=== PATIENT | female | born 1985 | race African-American/Black ===

== ENCOUNTER 2020-07-23 14:32 | Emergency (ER) | payer OTHER, SELFPAY ==
[2020-07-23 14:42] VITALS: BP 139/95; PULSE 69; RESP 16; TEMP 36.4; O2SAT 100
--- NOTE | 2020-07-23 15:04 | ED.URI ---
HPI - URI/Sore Throat General Chief Complaint: Upper Respiratory Infection Stated Complaint: sore throat Source: patient and RN notes reviewed Mode of arrival: ambulatory Limitations: no limitations History of Present Illness HPI Narrative: This is a 34-year-old -[place] female that presented to urgent care with complaints of sore throat , itchy ears and body aches that she started experiencing on Thursday. Patient's daughter did test positive for strep today she will also be treated with amoxicillin although her test reported negative. The patient denies SOB, CP, palpitation, extremity numbness, lightheadedness, dizziness, constipation, diarrhea, chills, or fever. Related Data Allergies Allergy/AdvReac Type Severity Reaction Status Date / Time latex Allergy Rash Verified 07/23/20 14:42 Review of Systems Review of Systems: All systems reviewed & are unremarkable except as noted in HPI and below (10 point system review) [facility] Family History Family History (Updated 03/23/14 @ 07:13 by DOCTOR UNKNOWN) Mother Hypertension Family history of elevated blood lipids Social History Social History Gender identity (if verbalized by the patient): Female Exam Narrative: Exam Narrative: GENERAL: This is a well-nourished, well-developed patient, in no apparent distress. HEAD: normocephalic, atraumatic. EYES: PERRL. Sclera clear/white. Vision is grossly intact. EARS: External ears normal, auditory canals clear and without drainage, TMs normal without perforation. Hearing grossly intact. NOSE: External nose normal with no obvious nasal discharge, nares without redness, no rhinorrhea. THROAT: Mucous membranes moist, posterior pharynx erythema with edema NECK: Neck supple, non-tender without lymphadenopathy, masses or thyromegaly. CARDIOVASCULAR: Regular rate and rhythm without murmurs, gallops, or rubs. RESPIRATORY: Clear to auscultation. Breath sounds equal bilaterally. No wheezes, rales, or rhonchi. GASTROINTESTINAL: Abdomen soft, non-tender, nondistended. Bowel sounds are active. No hepato-splenomegaly, or palpable masses. No guarding. SKIN: warm, intact with no suspicious lesions or rash, good texture and turgor. NEURO: awake, alert, and oriented to person, place and time. There were no obvious focal neurologic abnormalities. Steady gait EXTREMITIES: Normal range of motion. No edema. No calf tenderness. Negative Homans sign bilaterally. BACK: Nontender without deformity or crepitance. No flank tenderness. Course Course Emergency Course: Patient will discharge with amoxicillin 500 mg twice daily x7 days she did test negative but she had exposure MDM - URI/Sore Throat Differential Diagnosis Differential diagnosis: Likely upper respiratory infection, sinusitis, viral infection, influenza and pharyngitis Lab Data Attestation: I reviewed the patient's lab results. Labs: Strep Screen Presumptive Negative *(Reference Range: Negative)* Discharge Plan Discharge Clinical Impression: Strep pharyngitis Patient Disposition: Home, Self-Care Condition: Stable Instructions: Antibiotic Form, Amoxicillin (By mouth), Strep Throat (DC) Additional Instructions: -Eat things that are easy to swallow, like tea or soup, or popsicles to suck on. -Oral rinses such as: Salt water gargles and/or may use topical anesthetic (eg. Chloraseptic spray) or lozenges to relieve dryness or throat pain. -Take tylenol and ibuprofen as needed for pain and fever as directed. -Frequent hand washing or hand salon designer is one of the best ways to prevent spread of infection. -Follow up with primary care provider in 2-3 days if condition is not improving or seek ER visit if your child starts breathing fast/has trouble breathing, is not drinking enough fluids, muffle voice, difficulty opening the mouth or will not wake up or will not interact with you. Prescriptions: New amoxicilli
== END 2020-07-23 14:55 | disposition home or self-care (01) ==
PROVIDERS: Emergency Provider Nurse Practitioner; PCP Family Medicine
DX: J02.0 Streptococcal pharyngitis (principal)
CPT/HCPCS: 87081; 87880; 99213; G0463

== ENCOUNTER 2020-07-28 23:57 | Emergency (ER) | payer OTHER, SELFPAY ==
--- NOTE | ~2020-07-28 | XR_ITS ---
EXAMINATION: XR chest 1V portable DATE: 07/29/2020 00:38 INDICATION: Midsternal chest pain TECHNIQUE: frontal view of the chest was obtained. COMPARISON: None FINDINGS: The lungs are clear with no focal airspace opacities, pulmonary edema, pleural effusion or pneumothor ax. The cardiomediastinal silhouette is normal. Visualized bones and soft tissues are unremarkable. IMPRESSION: 1. No acute cardiopulmonary disease. Reviewed, dictated and finalized at location A. MACHINE OPERATOR
[2020-07-28 23:59] VITALS: BP 146/111; PULSE 72; RESP 16; TEMP 35.9; O2SAT 100
--- NOTE | 2020-07-29 00:11 | ECG_ITS ---
Measurements Intervals [place] Rate: 68 P: 55 [place]: 172 QRS: 37 QRSD: 81 T: 23 QT: 379 QTc: 405 Interpretive Statements SINUS RHYTHM BORDERLINE T WAVE ABNORMALITY- ANTERIOR LEADS BASELINE ARTIFACT- I, III, V1, V3 BORDERLINE ECG Electronically Signed On 07-29-2020 8:01:50 [employer]ER[employer]IEUTENANT by Jose Manuel Berry D.O.
[2020-07-29 00:18] LABS: Basophils Absolute Auto 0.1 K/mm3 (0.0-0.1); Basophils Percent Auto 0.6 % (0.2-1.2); Eosinophils Absolute Auto 0.2 K/mm3 (0-0.3); Eosinophils Percent Auto 1.6 % (0-4.4); Hematocrit 42.7 % (37.0-47.0); Hemoglobin 14.5 g/dL (12.0-15.0); Immature Granulocyte Absolute 0.03 K/mm3 (0.00-0.031); Immature Granulocyte Percent A 0.2 % (0-0.5); Lymphocytes Percent Auto 33.5 % (18.3-44.2); Mean Corpuscular Hemoglobin 29.5 pg (26-34); Mean Platelet Volume 10.2 fl (7.4-10.4); Monocytes Absolute Auto 0.9 K/mm3 (0.1-0.6); Monocytes Percent Auto 7.1 % (2.6-8.5); Neutrophils Absolute Auto 7.1 K/mm3 (1.3-6.7); Platelet Count Result 296 k/mm3 (150-375); Red Blood Count 4.91 M/mm3 (4.2-5.4); Red Cell Distribution Width 13.2 % (11.5-14.5); White Blood Count 12.5 K/mm3 (4.5-10.0)
[2020-07-29 00:36] LABS: Alanine Aminotransferase 18 U/L (4-35); Albumin Level 4.3 g/dL (3.5-5.1); Alkaline Phosphatase 130 U/L (38-126); Anion Gap 6 mmol/L (8-16); Aspartate Amino Transferase 27 U/L (14-36); Bilirubin,Total 0.5 mg/dL (0.2-1.3); Blood Urea Nitrogen 11 mg/dL (7-17); Calcium 9.1 mg/dL (8.4-10.2); Carbon Dioxide 30 mmol/L (22-30); Chloride 103 mmol/L (98-107); Estimated CRCL calculation 95 ml/min; Estimated Glomerular Filt Rate > 60; Glucose 98 mg/dL (65-105); Lipase 69 U/L (23-300); Potassium 3.6 mmol/L (3.4-5.0); Sodium 139 mmol/L (137-145)
[2020-07-29 00:47] LABS: Troponin I < 0.012 ng/mL (0.000-0.034)
[2020-07-29 00:55] LABS: Add Urine Microscopic? YES; Appearance Urine Clear (Clear); Bilirubin Urine Negative (Negative); Blood Urine Negative (Negative); Color Urine Yellow (Yellow); Glucose Urine UA Negative (Negative); Ketones Urine Negative (Negative); Leukocyte Esterase Ur Negative LEU/UL (Negative); Mucus Urine Heavy /lpf; Nitrate Urine Negative (Negative); Protein Urine 1+ mg/dL (Negative); Squamous Epithelial Cell Urine Many /hpf (Few); Urobilinogen Urine Negative mg/dL (<2.0)
[2020-07-29 00:56] LABS: Specific Grav Ur 1.034 (1.001-1.035)
[2020-07-29 01:20] VITALS: BP 127/93; PULSE 87; RESP 18; O2SAT 98
--- NOTE | 2020-07-29 01:41 | ED.GENADULT ---
HPI - General Adult General Chief complaint: Chest Pain Stated complaint: chest pain Time Seen by Provider: 07/29/20 00:09 History of Present Illness HPI narrative: Patient is a 34-year-old female who presents the emergency department with chief complaint of chest pain. Patient reports that she has discomfort in her chest and along her sternal border hurts whenever she takes a deep breath or whenever she moves around. Patient states it does feel more like a pressure-like sensation. The patient denies history of lupus denies history of connective tissue disorder. Patient states that she was tested for COVID-19 and it was negative Related Data Allergies Allergy/AdvReac Type Severity Reaction Status Date / Time latex Allergy Rash Verified 07/23/20 14:42 Review of Systems Review of Systems: Narrative: A 10 system review of systems was completed on the patient and is negative except for what is stated in the HPI. Nursing and ancillary documentation was reviewed. [facility] Family History Family History Mother Hypertension Family history of elevated blood lipids Social History Social History Gender identity (if verbalized by the patient): Female Comments Patient reports no significant past medical history History the patient had a cholecystectomy Exam Narrative: Exam Narrative: GENERAL: Well-appearing, well-nourished, and in no acute distress. HEAD: Normocephalic, atraumatic. EYES: PERRLA and EOMI. ENT: Nares clear, no rhinorrhea or epistaxis. Mucous membranes moist. NECK: Supple. CHEST: Clear to auscultation. No respiratory distress. There is tenderness to palpation in the sternal border HEART: Regular rate and rhythm. No murmur heard. Normal peripheral pulses. ABDOMEN: Soft, nontender, nondistended, normal active bowel sounds. EXTREMITIES: Normal range of motion. No edema. SKIN: Warm, dry, no rash. NEURO: No focal deficits. Alert and oriented x3. PSYCH: Normal mood and affect. Course Course Emergency Course: EKG shows sinus rhythm rate of [address] elevation or ST depression Vital Signs Vital signs: Vital Signs Temperature 35.9 C L 07/28/20 23:59 Pulse Rate 72 07/28/20 23:59 Respiratory Rate 16 07/28/20 23:59 Blood Pressure 146/111 H 07/28/20 23:59 Pulse Oximetry 100 07/28/20 23:59 Temperature 35.9 C L 07/28/20 23:59 Pulse Rate 87 07/29/20 01:20 Respiratory Rate 18 07/29/20 01:20 Blood Pressure 127/93 H 07/29/20 01:20 Pulse Oximetry 98 07/29/20 01:20 Medical Decision Making Vital Signs Vital Signs: Vital Signs Temperature 35.9 C L 07/28/20 23:59 Pulse Rate 72 07/28/20 23:59 Respiratory Rate 16 07/28/20 23:59 Blood Pressure 146/111 H 07/28/20 23:59 Pulse Oximetry 100 07/28/20 23:59 Temperature 35.9 C L 07/28/20 23:59 Pulse Rate 87 07/29/20 01:20 Respiratory Rate 18 07/29/20 01:20 Blood Pressure 127/93 H 07/29/20 01:20 Pulse Oximetry 98 07/29/20 01:20 Lab Data Result diagrams: 07/29/20 00:10 07/29/20 00:10 Labs: Lab Results 07/29/20 07/29/20 07/29/20 Range/Units 00:10 00:10 00:30 WBC 12.5 H (4.5-10.0) K/mm3 RBC 4.91 (4.2-5.4) M/mm3 Hgb 14.5 (12.0-15.0) g/dL Hct 42.7 (37.0-47.0) % MCV 87.0 (80-100) fl MCH 29.5 (26-34) pg MCHC 34.0 (32-36) g/dl RDW 13.2 (11.5-14.5) % Plt Count 296 (150-375) k/mm3 MPV 10.2 (7.4-10.4) fl Immature Gran % (Auto) 0.2 (0-0.5) % Neut % (Auto) 57.0 (45.5-73.1) % Lymph % (Auto) 33.5 (18.3-44.2) % [place] % (Auto) 7.1 (2.6-8.5) % Eos % (Auto) 1.6 (0-4.4) % Baso % (Auto) 0.6 (0.2-1.2) % Lymph # (Auto) 4.20 H (0.9-3.2) K/mm3 [place] # (Auto) 0.9 H (0.1-0.6) K/mm3 Eos # (Auto) 0.2 (0-0.3) K/mm3 Baso # (Auto) 0.1 (0.0-0.1) K/mm3 Abs Immat Gran (auto) 0.03 (0.00-0.031) K/mm3 Absolute Neuts (auto) 7.1 H (1
[2020-07-29 02:02] VITALS: BP 138/74; PULSE 87; RESP 18; O2SAT 99
== END 2020-07-29 02:04 | disposition home or self-care (01) ==
PROVIDERS: Emergency Provider Emergency Medicine; PCP Family Medicine
DX: R07.89 Other chest pain (principal); R94.31 Abnormal electrocardiogram [ECG] [EKG]
CPT/HCPCS: 36415; 71045; 80053; 81001; 81025; 83690; 84484; 85025; 93005; 99284

== ENCOUNTER 2021-02-05 22:29 | Emergency (ER) | payer OTHER, SELFPAY ==
--- NOTE | ~2021-02-05 | XR_ITS ---
EXAMINATION: XR chest 2V EXAM DATE: 02/05/2021 22:58 INDICATION: Palpitations, chest pain. TECHNIQUE: Frontal and lateral projections of the chest obtained and reviewed. Comparison is made to prior examination from 07/29/2020. FINDINGS: The lungs are clear. There are no pleural effusions. The cardiomediastinal silhouette is within normal limits. There is no pneumothorax suspected. The bones and soft tissues are unremarkab le. There are cholecystectomy clips. IMPRESSION: Normal chest x-ray exam. Reviewed, dictated and finalized at location G. IMPRESSION: Normal chest x-ray exam.
[2021-02-05 22:39] VITALS: BP 131/88; PULSE 77; RESP 16; TEMP 36.5; O2SAT 98
--- NOTE | 2021-02-05 22:42 | ECG_ITS ---
Measurements Intervals [place] Rate: 83 P: 49 [place]: 140 QRS: 34 QRSD: 80 T: 21 QT: 349 QTc: 412 Interpretive Statements SINUS RHYTHM BASELINE ARTIFACT- I, II, III, AVL, AVF, V5-V6 NORMAL ECG Electronically Signed On 02-06-2021 6:34:13 CDT by Jose Manuel Berry D.O.
[2021-02-05 22:56] LABS: Basophils Absolute Auto 0.1 K/mm3 (0.0-0.1); Basophils Percent Auto 0.7 % (0.2-1.2); Eosinophils Absolute Auto 0.3 K/mm3 (0-0.3); Eosinophils Percent Auto 2.7 % (0-4.4); Hemoglobin 13.7 g/dL (12.0-15.0); Immature Granulocyte Absolute 0.02 K/mm3 (0.00-0.031); Immature Granulocyte Percent A 0.2 % (0-0.5); Lymphocytes Absolute Auto 3.86 K/mm3 (0.9-3.2); Lymphocytes Percent Auto 34.9 % (18.3-44.2); Mean Corpuscular HGB Conc 33.4 g/dl (32-36); Mean Corpuscular Hemoglobin 28.8 pg (26-34); Mean Corpuscular Volume 86.1 fl (80-100); Mean Platelet Volume 9.8 fl (7.4-10.4); Monocytes Absolute Auto 0.7 K/mm3 (0.1-0.6); Monocytes Percent Auto 6.1 % (2.6-8.5); Neutrophils Absolute Auto 6.1 K/mm3 (1.3-6.7); Neutrophils Percent Auto 55.4 % (45.5-73.1); Platelet Count Result 314 k/mm3 (150-375); Red Blood Count 4.76 M/mm3 (4.2-5.4); Red Cell Distribution Width 12.6 % (11.5-14.5); White Blood Count 11.1 K/mm3 (4.5-10.0)
[2021-02-05 23:08] LABS: Anion Gap 9 mmol/L (8-16); Blood Urea Nitrogen 10 mg/dL (7-17); Calcium 9.6 mg/dL (8.4-10.2); Carbon Dioxide 24 mmol/L (22-30); Chloride 104 mmol/L (98-107); Estimated CRCL calculation 107 ml/min; Estimated Glomerular Filt Rate > 60; Glucose 102 mg/dL (65-105); Potassium 3.8 mmol/L (3.4-5.0); Sodium 137 mmol/L (137-145)
[2021-02-05 23:11] LABS: INR 0.9; Prothrombin Time 12.4 Seconds (11.1-14.7)
[2021-02-05 23:19] LABS: Troponin I < 0.012 ng/mL (0.000-0.034)
--- NOTE | 2021-02-06 02:39 | PC.NURSE ---
called pt, no response.
== END 2021-02-06 03:01 | disposition left against medical advice (07) ==
PROVIDERS: Emergency Provider Emergency Medicine; PCP Family Medicine
DX: R07.9 Chest pain, unspecified (principal)
CPT/HCPCS: 36415; 71046; 80048; 84484; 85025; 85610; 85730; 93005; 99199

== ENCOUNTER 2023-08-13 19:08 | Emergency (ER) | payer OTHER, SELFPAY ==
--- NOTE | ~2023-08-13 | XR_ITS ---
EXAMINATION: XR chest 2V DATE: 08/13/2023 19:29 INDICATION: Chest pain and shortness of breath TECHNIQUE: Frontal and lateral views of the chest are obtained COMPARISON: 12/25/2021 FINDINGS: The lungs are free of acute opacities. No pleural effusion or pneumothorax. The cardiomedia stinal silhouette is normal. The visualized bones and soft tissues are unremarkable. IMPRESSION: 1. No acute cardiopulmonary abnormality. Reviewed, dictated and finalized at location F. ER BAILER OPERATOR
--- NOTE | 2023-08-13 19:09 | ECG_ITS ---
Measurements Intervals [place] Rate: 70 P: 47 SD: 167 QRS: 34 QRSD: 87 T: 35 QT: 385 QTc: 415 Interpretive Statements SINUS RHYTHM MINIMAL Q WAVES- INFERIOR LEADS BORDERLINE T WAVE ABNORMALITY- ANTERIOR LEADS BORDERLINE ECG COMPARED TO ECG 02/05/2021 22:36:49 NO SIGNIFICANT CHANGES Electronically Signed On 08-14-2023 6:23:04 DIRECTOR DIGITAL ANALYTICS by Jose Manuel Berry D.O.
[2023-08-13 19:15] VITALS: BP 146/70; PULSE 79; RESP 16; TEMP 36.2; O2SAT 100
[2023-08-13 19:28] LABS: Basophils Absolute Auto 0.1 K/mm3 (0.0-0.1); Basophils Percent Auto 0.8 % (0.2-1.2); Eosinophils Absolute Auto 0.4 K/mm3 (0-0.3); Eosinophils Percent Auto 3.1 % (0-4.4); Hematocrit 44.5 % (37.0-47.0); Hemoglobin 14.4 g/dL (12.0-15.0); Immature Granulocyte Absolute 0.02 K/mm3 (0.00-0.031); Immature Granulocyte Percent A 0.2 % (0-0.5); Lymphocytes Absolute Auto 4.27 K/mm3 (0.9-3.2); Lymphocytes Percent Auto 37.3 % (18.3-44.2); Mean Corpuscular HGB Conc 32.4 g/dl (32-36); Mean Corpuscular Hemoglobin 28.2 pg (26-34); Mean Corpuscular Volume 87.1 fl (80-100); Monocytes Absolute Auto 0.6 K/mm3 (0.1-0.6); Monocytes Percent Auto 5.2 % (2.6-8.5); Neutrophils Absolute Auto 6.1 K/mm3 (1.3-6.7); Neutrophils Percent Auto 53.4 % (45.5-73.1); Platelet Count Result 328 k/mm3 (150-375); Red Blood Count 5.11 M/mm3 (4.2-5.4); Red Cell Distribution Width 12.8 % (11.5-14.5); White Blood Count 11.4 K/mm3 (4.5-10.0)
[2023-08-13 19:52] LABS: Partial Thromboplastin Time 33.1 SECONDS (22.3-36.8); Prothrombin Time 13.3 Seconds (11.1-14.7)
[2023-08-13 21:25] LABS: Alanine Aminotransferase 23 U/L (6-35); Albumin Level 4.4 g/dL (3.5-5.1); Alkaline Phosphatase 89 U/L (38-126); Anion Gap 10 mmol/L (8-16); Aspartate Amino Transferase 31 U/L (14-36); Bilirubin,Total 0.7 mg/dL (0.2-1.3); Blood Urea Nitrogen 11 mg/dL (7-17); Calcium 9.3 mg/dL (8.4-10.2); Carbon Dioxide 24 mmol/L (22-30); Chloride 104 mmol/L (98-107); Estimated CRCL calculation 106 ml/min; Estimated Glomerular Filt Rate > 60; Glucose 119 mg/dL (65-110); Lipase 84 U/L (23-300); Potassium 3.6 mmol/L (3.4-5.0); Sodium 138 mmol/L (137-145)
[2023-08-13 21:35] LABS: Troponin I < 0.012 ng/mL (0.000-0.034)
--- NOTE | 2023-08-13 23:11 | PC.NURSE ---
No answer when called for repeat troponin
--- NOTE | 2023-08-13 23:19 | PC.NURSE ---
Patient called for ED room, no answer
== END 2023-08-13 23:11 | disposition left against medical advice (07) ==
PROVIDERS: Emergency Provider Student in an Organized Health Care Education/Training Program; PCP Family Medicine
DX: R07.89 Other chest pain (principal)
CPT/HCPCS: 36415; 71046; 80053; 83690; 84484; 85025; 85610; 85730; 93005; 99199

== ENCOUNTER 2023-08-25 01:42 | Emergency (ER) | payer OTHER, MEDICAID, SELFPAY ==
--- NOTE | ~2023-08-25 | XR_ITS ---
Left elbow Technique: AP, oblique, and lateral views were obtained. Clinical History: Pain Findings: No acute fracture or dislocation is seen. Osseous alignment is anatomic. Joint spaces are p reserved. There is no displacement of the fat pads, and soft tissues are unremarkable. Impression: Unremarkable radiographs. Reviewed, dictated and finalized at location . EMIC SUCCESS COORDINATOR Impression: Unremarkable radiographs.
[2023-08-25 01:43] VITALS: BP 144/95; PULSE 107; RESP 16; TEMP 36.8; O2SAT 96
--- NOTE | 2023-08-25 02:08 | ECG_ITS ---
Measurements Intervals [place] Rate: 102 P: 46 [place]: 170 QRS: 28 QRSD: 85 T: 39 QT: 338 QTc: 442 Interpretive Statements SINUS TACHYCARDIA CONSIDER ANTERIOR INFARCT, AGE INDETERMINATE CONSIDER INFERIOR INFARCT, AGE INDETERMINATE ABNORMAL ECG COMPARED TO ECG 08/13/2023 19:13:02 SINUS TACHYCARDIA NOW PRESENT Electronically Signed On 08-25-2023 6:28:06 ECOLOGIST by Jose Manuel Berry D.O.
--- NOTE | 2023-08-25 02:08 | PC.NURSE ---
Pt now reports to this RN that her pain started in her chest and radiated to her arm.
[2023-08-25] MEDS: ACETAMINOPHEN 500 MG TABLET 1000 MG PO (03:16)
[2023-08-25] MEDS: oxyCODONE HCL (*CRX) 5 MG TAB IR PO (03:16)
[2023-08-25] MEDS: KETOROLAC 30 MG/ML VIAL (*BKC) 15 MG IM (03:16)
--- NOTE | 2023-08-25 03:50 | ED.GENADULT ---
HPI - General Adult General Chief complaint: Extremity Problem,Nontraumatic Stated complaint: L arm pain Time Seen by Provider: 08/25/23 02:09 History of Present Illness HPI narrative: 37-year-old female presenting with atraumatic left elbow pain. Pain started last night after that watch the football game. Then it got progressively worse throughout day. It is a sharp pain in her elbow. It is worse when she moves her elbow back and forth. Is no significant swelling or redness. No fever chills. No no trauma. Related Data Allergies Allergy/AdvReac Type Severity Reaction Status Date / Time latex Allergy Rash Verified 08/25/23 02:22 [facility] Family History Family History Mother Hypertension Family history of elevated blood lipids Social History Social History Gender identity (if verbalized by the patient): Female Exam Narrative: APPEARANCE: No apparent distress. Head: atraumatic. EYES: EOMI, NOSE: Atraumatic NECK: Trachea midline RESPIRATORY: No increased rate of breathing CARDIOVASCULAR: RRR, ABDOMINAL: Non-distended MUSCULOSKELETAl: Focal exam of the left arm rhythm patient holding her arm at 90?. No swelling redness or overlying skin changes. No significant warmth to the elbow. Neurovascularly intact distal to the elbow. Pain with active and passive range of motion. NEURO: Alert. Moving 4/4 extremities SKIN:: Warm, dry. Normal color PSYCHIATRIC: Normal affect Course Vital Signs Vital signs: Vital Signs Temperature 98.2 F 08/25/23 01:43 Pulse Rate 107 H 08/25/23 01:43 Respiratory Rate 16 08/25/23 01:43 Blood Pressure 144/95 H 08/25/23 01:43 Pulse Oximetry 96 08/25/23 01:43 Oxygen Delivery Room Air 08/25/23 01:43 Temperature 98.2 F 08/25/23 01:43 Pulse Rate 107 H 08/25/23 01:43 Respiratory Rate 16 08/25/23 01:43 Blood Pressure 144/95 H 08/25/23 01:43 Pulse Oximetry 96 08/25/23 01:43 Oxygen Delivery Room Air 08/25/23 01:43 Medical Decision Making [facility] Narrative Medical decision making narrative: -Course: 37-year-old female presenting with atraumatic elbow pain. X-ray showed some mild degenerative joint disease. Pain improved with Toradol oxycodone Tylenol. Patient will be discharged on a short course of NSAIDs with primary care follow-up -DDX includes but is not limited to: arthritis, peripheral neuropathy, degenerative joint disease, septic joint -Co-morbidities complicating care: hypertension -Interventions: Toradol, Tylenol, oxycodone -Shared decision making / Disposition: discharge -RX Motrin Tylenol Robaxin Vital Signs Vital Signs: Vital Signs Temperature 98.2 F 08/25/23 01:43 Pulse Rate 107 H 08/25/23 01:43 Respiratory Rate 16 08/25/23 01:43 Blood Pressure 144/95 H 08/25/23 01:43 Pulse Oximetry 96 08/25/23 01:43 Oxygen Delivery Room Air 08/25/23 01:43 Temperature 98.2 F 08/25/23 01:43 Pulse Rate 107 H 08/25/23 01:43 Respiratory Rate 16 08/25/23 01:43 Blood Pressure 144/95 H 08/25/23 01:43 Pulse Oximetry 96 08/25/23 01:43 Oxygen Delivery Room Air 08/25/23 01:43 Discharge Plan Discharge Clinical Impression: Elbow pain Patient Disposition: Home, Self-Care Condition: Stable Instructions: Antibiotic Form, Arthralgia (ED) Additional Instructions: Please trial a course of Motrin Tylenol and Robaxin for your elbow. Please follow-up your primary care physician in 1 week for further eval. If you develop fevers the joint becomes large red and swollen, or you feel the pain is unbearable please return emergency department Prescriptions: New ibuprofen 800 mg tablet 800 mg PO TID PRN (Reason: pain) 7 Days Qty: 21 0RF acetaminophen 500 mg tablet 1,000 mg PO TID PRN (Reason: isidro) 7 Days Qty: 42 0RF methocarbamol 750 mg tablet 1,500 mg PO TID Qty: 42 0RF No Action amoxicillin 500 mg capsul
[2023-08-25 04:22] VITALS: BP 142/86; PULSE 88; RESP 15; O2SAT 100
== END 2023-08-25 04:23 | disposition home or self-care (01) ==
PROVIDERS: Emergency Provider Emergency Medicine
DX: M25.522 Pain in left elbow (principal)
CPT/HCPCS: 73080; 93005; 96372; 99283; A4565; A9270; J1885

== ENCOUNTER 2024-01-28 15:25 | Emergency (ER) | payer OTHER, SELFPAY ==
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
[2024-01-28 15:30] VITALS: BP 139/84; PULSE 87; RESP 16; TEMP 36.4; O2SAT 96
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
[2024-01-28] MEDS: ONDANSETRON HCL ODT 4 MG TABLET PO (17:15)
[2024-01-28] MEDS: IBUPROFEN 400 MG TABLET PO (17:15)
== END 2024-01-28 17:15 | disposition home or self-care (01) ==
LOC: ANHED 16:05
PROVIDERS: Emergency Provider Emergency Medicine
DX: S09.90XA Unspecified injury of head, initial encounter (principal); V49.50XA Passenger injured in collision with unspecified motor vehicles in traffic accident, initial encounter
CPT/HCPCS: 70450; 72125; 99284; A9270